=== PATIENT | female | born 1995 | race Caucasian/White ===

== ENCOUNTER 2022-07-22 12:36 | Inpatient (IN) | payer MEDICAID, SELFPAY ==
[2022-07-22] VITALS (50 sets, daily range): BP systolic 122–179; BP diastolic 63–97; PULSE 64–100; RESP 16–18; TEMP 36.3–36.7; O2SAT 92–99; BMI 36.1
[2022-07-22] MEDS: oxytocin 30 UNIT/500 ML BAG IV (13:31)
[2022-07-22] MEDS: dextrose 5%-lactated ringers 1,000 ML 125 ML IV ×2 (13:31→21:35)
[2022-07-22 13:50] LABS: Basophils % 0.2 %; Eosinophils # 0.1 10^3/uL (0.0-0.8); Eosinophils % 0.5 %; Hematocrit 35.3 % (37.0-47.0); Hemoglobin 12.2 g/dL (11.5-15.3); Lymphocytes # 1.7 10^3/uL (0.8-4.8); Lymphocytes % 15.4 %; Mean Corpuscular HGB Conc 34.6 g/dL (30.0-36.0); Mean Corpuscular Volume 86.7 fl (81-99); Mean Platelet Volume 10.8 fL (7.4-10.4); Monocytes # 0.7 10^3/uL (0.2-0.9); Monocytes % 6.6 %; Neutrophils # 8.57 10^3/uL (1.8-7.7); Neutrophils % 76.9 %; Nucleated Red Blood Cells % 0 %; Platelet Count 283 10^3/cmm (130-400); Red Blood Count 4.07 10^6/uL (4.1-5.3); Red Cell Distribution Width 12.8 % (12.1-15.1); White Blood Count 11.2 10^3/uL (4.0-10.0)
--- NOTE | 2022-07-22 14:15 | P.ANESASSM_ITS ---
Pre-Anesthetic Assessment Height/Weight: Height 1.52 m Weight 83.915 kg Temp Pulse Resp BP O2 Del Method 98.1 F 89 18 145/92 07/22/22 13:32 07/22/22 14:12 07/22/22 12:36 07/22/22 14:12 07/22/22 12:50 Preop Diagnosis: Active Labor Labor Epidural Familial anesthetic complications: none Was Beta Grace taken within 24 hours: N/A Social No alcohol and No tobacco Exam alert, oriented x 3 and clear to auscultation bilaterally Airway Submandibular: within normal limits Cervical ROM: within normal limits Mallampati: Class II Dentition: full History/ROS No significant history except as noted Pulmonary None reported CV/HEM None reported None reported Hepatic None reported GI None reported Metabolic None reported Musc/skel None reported Neuropsych None reported Anesthetic Plan ASA status: 2 Anesthesia: Regional (specify below) Other: Labor Epidural Medications/Allergies Allergies Allergy/AdvReac Type Severity Reaction Status Date / Time Penicillins Allergy Mild ALGY-Hives Verified 07/22/22 13:36 Current Medications Generic Name Dose Route Start Last Admin Trade Name Freq PRN Reason Stop Dose Admin Dextrose/Lactated Ringer's 1,000 mls @ 125 mls/hr 07/22/22 12:45 07/22/22 13:31 Dextrose 5%-Lactated Ringers IV 125 mls/hr .Q8H CARMEN Administration Oxytocin 30 unit in 500 mls @ 1 mls/hr 07/22/22 12:45 07/22/22 13:59 Pitocin IV 6 milliunit/min .Q24H CARMEN 6 mls/hr Titration Protocol 1 MILLIUNIT/MIN [facility] Anesthesia Female Reproductive History : 1 Data Anesthesia 07/22/22 13:15 Short CBC 07/22/22 Range/Units 13:15 WBC 11.2 H (4.0-10.0) 10^3/uL Hgb 12.2 (11.5-15.3) g/dL Hct 35.3 L (37.0-47.0) % MCV 86.7 (81-99) fl Plt Count 283 (130-400) 10^3/cmm Neut % (Auto) 76.9 % Neut # (Auto) 8.57 H (1.8-7.7) 10^3/uL Cardiac Studies: No Data to Display Anesthesia Procedures Epidural Time Out Performed: Yes Consent: from patient, risks and benefits reviewed and patient agrees to proceed Lumbar Level: L3-L4 Epidural position: sitting Epidural procedure: sterile prep of area, 1% lidocaine to numb the area, negative for paresthesia passed, test dose given, 1.5% xylocaine 1:200k epi, placed PCEA, no systemic response, sterile dressing applied, L.U.D. no apparent complications and 0.2% Ropiavacaine @ mls/hr (13) Additional Comments: ISRA at 7.5 catheter threaded to 13.5 cm, Test dose followed by remaining lidocaine and saline. 100 mcg Fentanyl given via epidural. VVS.
--- NOTE | 2022-07-22 17:22 | PM.OPHPUD ---
Labor & Delivery H&P Update Date of Procedure: July 22, 2022 Date H&P Performed: 07/20/22 Admission Diagnosis: at 40 weeks Preop diagnosis: IUP at 40 weeks Primary indication for procedure: Elective Induction of Labor
--- NOTE | 2022-07-22 17:24 | P.PN_ITS ---
Subjective Subjective: Patient is here today for an elective induction. She is 40 weeks 0 days gestation. She was started on Pitocin and is currently at 20 units. Vitals/I&O/Wt Last Vital Signs Temp 98.1 F 07/22/22 13:32 Pulse 71 07/22/22 17:12 Resp 18 07/22/22 12:36 BP 154/75 07/22/22 17:12 O2 Del Method 07/22/22 12:50 07/22/22 07/22/22 07/22/22 06:59 14:59 22:59 Intake Total 7.500 / 7.500 15.0 / 22.500 Balance 7.500 / 7.500 15.0 / 22.500 Weight last 48 hrs Weight 83.915 kg Weight 83.915 kg Physical Exam Narrative: Sterile vaginal exam was performed and she was 1 to 2 cm, 60% effaced, -3 station. The head was well applied and artificial rupture of membranes was performed using an amnio hook. There was a moderate amount of clear fluid. Patient tolerated the procedure well. heart tones 130s moderate variability positive accelerations, no decelera tions. Contractions are irregular but patient is only feeling them once every 10 minutes. Data 07/22/22 13:15 A&P Assessment and plan (1) 40 weeks gestation of : Continue expectant management of labor and delivery Attestations Medical Necessity Statement*: Expectant management of labor and delivery Coding Level of Care Code Acute Code for Chg Fwd Diagnoses 40 weeks gestation of Z3A.40
[2022-07-22] MEDS: lactated ringers 1,000 ML 999 ML IV (18:53)
[2022-07-23] VITALS (18 sets, daily range): BP systolic 136–168; BP diastolic 65–95; PULSE 73–98; RESP 14–18; TEMP 36.4–36.9; O2SAT 98–99
[2022-07-23] MEDS: ondansetron 2 mg/ML SDV 2 mL 4 MG IVP (00:20)
[2022-07-23] MEDS: oxytocin 30 UNIT/500 ML BAG 600 UNIT IV (01:26)
--- NOTE | 2022-07-23 01:41 | PM.DELIVERY ---
Delivery Note: Date of delivery: July 23, 2022 Procedure: Normal spontaneous vaginal delivery Estimated blood loss (mL): 270 Delivery: This is a 26-year-old G1, P0 at 40 weeks 1 day gestation who was admitted for an elective induction. Her cervix was favorable so she was started on Pitocin. She underwent artificial rupture of membranes with clear fluid. Rupture of membranes was approximately 8 and half hours prior to delivery. She received an epidural for pain management. When she was complete she was feeling too much pressure to labor down so we began pushing with her. She had a normal spontaneous vaginal delivery of a viable male infant weight 3130 g, 6 pounds 14 ounces, Apgars 7 and 9 over an intact perineum. The was suctioned at delivery and placed on the mother's chest. The cord was clamped and cut. The placenta was delivered grossly intact and normal to inspection. There were few superficial abrasions but no lacerations. Mother and infant were doing well after delivery. Coding Level of Care Code Acute Code for Chg Fwd
[2022-07-23] MEDS: ibuprofen 800 mg tablet PO ×2 (08:54→15:00)
[2022-07-23] MEDS: docusate sodium 100 mg Capsule PO ×2 (08:54→18:07)
[2022-07-23] MEDS: prenatal vitamin Capsule 1 CAP PO (08:54)
[2022-07-23 14:06] LABS: Hematocrit 26.5 % (37.0-47.0); Hemoglobin 9.1 g/dL (11.5-15.3); Mean Corpuscular HGB Conc 34.3 g/dL (30.0-36.0); Mean Corpuscular Hemoglobin 30.1 pg (28.0-34.0); Mean Corpuscular Volume 87.7 fl (81-99); Mean Platelet Volume 10.8 fL (7.4-10.4); Platelet Count 202 10^3/cmm (130-400); Red Blood Count 3.02 10^6/uL (4.1-5.3); Red Cell Distribution Width 12.7 % (12.1-15.1); White Blood Count 15.4 10^3/uL (4.0-10.0)
[2022-07-24 03:47] VITALS: BP 121/76; PULSE 76; RESP 16; TEMP 36.6; TEMP 36.7; O2SAT 99
[2022-07-24] MEDS: prenatal vitamin Capsule 1 CAP PO (09:26)
[2022-07-24] MEDS: docusate sodium 100 mg Capsule PO (09:27)
[2022-07-24] MEDS: ibuprofen 800 mg tablet PO (09:27)
[2022-07-24 09:51] VITALS: BP 142/88; PULSE 71; TEMP 36.8; O2SAT 99
--- NOTE | 2022-07-24 11:13 | PM.DCS ---
Discharge Providers Date of Admission: 07/22/22 12:36 Date of Discharge: July 24, 2022 Attending Provider at Admission: Eleanor Springer MD Attending Provider at Discharge: Eleanor Springer MD Diagnoses at Discharge Discharge Diagnosis (1) 40 weeks gestation of : Status: Acute (2) Elevated blood pressure reading: Status: Acute Reason for Visit Reason for Visit: Induction Hospital Course Hospital Course This is a 26-year-old G1 now P1 who had a normal spontaneous vaginal delivery at 40 weeks 1 day gestation of a viable male . Mother is feeling well and desires to go home. She has had decreased vaginal bleeding. She denies any chest pain or shortness of breath. She has had several blood pressures that are mildly elevated 140s to 150s. Urine output was checked and found to be good. Physical Exam Narrative: Alert and oriented, dressed in street close and sitting on bedside couch. Heart regular rate and rhythm, lungs clear to auscultation bilaterally, no crackles, abdomen is soft nontender and fundus is firm, extremities have 1+ nonpitting edema but no calf tenderness. Urinary Catheter Management: Valdes Latex: Cath Placed During This Visit: yes, but has since been removed by the nurse Reason for Continuing Indwelling Catheter: Decision to DC Catheter Urinary Catheter Date of Insertion: 07/22/22 Urinary Catheter Time of Insertion: 19:53 Date Urinary Catheter Removed: 07/23/22 Time Urinary Catheter Discontinued: 00:30 Discharge Data Studies Completed and Pending Laboratory Results WBC 15.4 10^3/uL (4.0-10.0) H 07/23/22 13:57 RBC 3.02 10^6/uL (4.1-5.3) L 07/23/22 13:57 Hgb 9.1 g/dL (11.5-15.3) L 07/23/22 13:57 Hct 26.5 % (37.0-47.0) L 07/23/22 13:57 MCV 87.7 fl (81-99) 07/23/22 13:57 MCH 30.1 pg (28.0-34.0) 07/23/22 13:57 MCHC 34.3 g/dL (30.0-36.0) 07/23/22 13:57 RDW 12.7 % (12.1-15.1) 07/23/22 13:57 Plt Count 202 10^3/cmm (130-400) 07/23/22 13:57 MPV 10.8 fL (7.4-10.4) H 07/23/22 13:57 Neut % (Auto) 76.9 % 07/22/22 13:15 Lymph % (Auto) 15.4 % 07/22/22 13:15 [place] % (Auto) 6.6 % 07/22/22 13:15 Eos % (Auto) 0.5 % 07/22/22 13:15 Baso % (Auto) 0.2 % 07/22/22 13:15 Neut # (Auto) 8.57 10^3/uL (1.8-7.7) H 07/22/22 13:15 Lymph # (Auto) 1.7 10^3/uL (0.8-4.8) 07/22/22 13:15 [place] # (Auto) 0.7 10^3/uL (0.2-0.9) 07/22/22 13:15 Eos # (Auto) 0.1 10^3/uL (0.0-0.8) 07/22/22 13:15 Baso # (Auto) 0.0 10^3/uL (0.0-0.1) 07/22/22 13:15 Nucleated RBC % (auto) 0 % 07/22/22 13:15 Nucleated RBCs # 0.0 /100WBC 07/22/22 13:15 Vitals Last Vital Signs Temp 98.3 F 07/24/22 09:51 Pulse 71 07/24/22 09:51 Resp 16 07/24/22 03:47 BP 142/88 07/24/22 09:51 Pulse Ox 99 07/24/22 09:51 O2 Del Method 07/24/22 09:51 Discharge Plan Discharge Patient Disposition: Home Condition: Stable Discharge Orders: Discharge Order (Routine); Ordered 07/24/22 Ordered By: Eleanor Springer Referrals: Eleanor Springer MD [Physician] - 1-3 days (1. wednesday for BP check 2. 4 weeks for visit.) Discharge Diet: Usual diet Discharge Activity: Limit activity as instructed Patient Instructions: Depression (DC), Bleeding (DC), Preeclampsia and Eclampsia After Delivery (GEN), OB Discharge Report, OB Food/Drug Interaction Guide, OB Care at Home, Opioid Safety, OB Vaginal Deliveries Discharge Attestations Time Spent in Discharge Care*: less than 30 min Quality Metrics Clinical Quality Measures [ No reported AMI, CVA or VTE this stay] Coding Level of Care Code Acute Code for Chg Fwd Diagnoses 40 weeks gestation of Z3A.40 Elevated blood pressure reading R03.0
[2022-07-24 13:05] VITALS: BP 142/89; PULSE 76; RESP 17; TEMP 36.8
--- NOTE | 2022-07-29 14:33 | ANE.PACU2 ---
Inpatient post-anesthesia follow up: Airway intact: Yes Vital signs: Temperature 98.2 F Pulse Rate 76 Respiratory Rate 17 Blood Pressure 142/89 Pulse Oximetry 99 Oxygen Delivery Me thod Room Air Oxygen Flow Rate Fraction of Inspir ed Oxygen Hydration adequate: Yes Nausea and vomiting: No Pain level: 2 Mental status: Baseline
== END 2022-07-24 13:20 | disposition home or self-care (01) | DRG 807 ==
LOC: OPOB 12:36 → OBGYN 12:43
PROVIDERS: Admitting Provider Family Medicine; Visit Provider Family Medicine
DX: O48.0 Post-term pregnancy (principal); Z37.0 Single live birth; Z3A.40 40 weeks gestation of pregnancy; Z88.0 Allergy status to penicillin
CPT/HCPCS: 36415; 51702; 59025; 59409; 85025; 85027; 96374; 98960; 99211; J2405; J2590; J2795; J3010; J7120; J7121